=== PATIENT | male | born 1945 | race Caucasian/White ===

== ENCOUNTER → 2016-12-16 | Outpatient (CLI) | payer MEDICARE, BC ==
[~2016-12-16] MED LIST: LEVOTHROID(SYN75 MCG PO; PRILOSEC20 MG PO; PRINIVIL OR ZES10 MG PO
== END | disposition disaster alternative care site (69) ==
LOC: GRAD 12:35
DX: R10.10 Upper abdominal pain, unspecified (principal); Z98.890 Other specified postprocedural states
CPT/HCPCS: Q9967